=== PATIENT | female | born 1990 ===

== ENCOUNTER 2021-07-11 07:48 | Outpatient (CLI) | payer OTHER | END 2021-07-11 08:51 | disposition home or self-care (01) | LOC: PRENATAL 07:48 | PROVIDERS: ATTEND Obstetrics & Gynecology Maternal & Fetal Medicine | DX: O35.0XX1 Maternal care for (suspected) central nervous system malformation in fetus, fetus 1 (principal); O35.3XX1 Maternal care for (suspected) damage to fetus from viral disease in mother, fetus 1; O98.512 Other viral diseases complicating pregnancy, second trimester; Z36.89 Encounter for other specified antenatal screening; Z3A.24 24 weeks gestation of pregnancy ==

== ENCOUNTER 2021-09-12 08:54 | Outpatient (CLI) | payer OTHER | END 2021-09-12 10:20 | disposition home or self-care (01) | LOC: PRENATAL 08:54 | PROVIDERS: ATTEND Obstetrics & Gynecology Maternal & Fetal Medicine | DX: O26.843 Uterine size-date discrepancy, third trimester (principal); O36.5931 Maternal care for other known or suspected poor fetal growth, third trimester, fetus 1; O41.03X1 Oligohydramnios, third trimester, fetus 1; Z36.89 Encounter for other specified antenatal screening; Z3A.32 32 weeks gestation of pregnancy ==

== ENCOUNTER 2021-10-19 14:15 | Inpatient (IN) | payer OTHER ==
[~2021-10-19] VITALS: Ht 170.2 cm; Wt 59.4 kg
[2021-10-30] MEDS ORDERED: PRENATAL CAPLE1 EAC1 PO (06:43)
[2021-10-30] MEDS ORDERED: FOLIC ACID20 MG PO (06:43)
[2021-10-30] MEDS ORDERED: FAMOTIDINE40 MG (10:59)
== END 2021-11-01 12:06 | disposition home or self-care (01) | DRG 807 ==
LOC: OB/GYN 10-30 05:55 → LDR 10-30 05:55 → OB/GYN 10-30 17:31 → SURH 10-31 14:15 → OB/GYN 11-01 12:06
PROVIDERS: ADMIT Obstetrics & Gynecology; ATTEND Obstetrics & Gynecology
PROC: 10E0XZZ Delivery of Products of Conception, External Approach (ICD-10-PCS; principal; 2021-10-30)
PROC: 0UQGXZZ Repair Vagina, External Approach (ICD-10-PCS; 2021-10-30)
PROC: 4A1HXCZ Monitoring of Products of Conception, Cardiac Rate, External Approach (ICD-10-PCS; 2021-10-30)
DX: O71.4 Obstetric high vaginal laceration alone (principal); Z37.0 Single live birth; Z3A.40 40 weeks gestation of pregnancy; Z20.822 Contact with and (suspected) exposure to COVID-19